=== PATIENT | female | born 1975 | race Caucasian/White ===

== ENCOUNTER 2024-07-23 11:30 | Outpatient (AMB) | payer OTHER, SELFPAY ==
--- NOTE | 2024-07-23 11:59 | AM.OFFWIN_ITS ---
Intake Vital Signs 07/23/24 12:00 Height 5 ft 3 in Weight 165 lb BMI 29.2 BP 130/80 Blood Pressure Location Lt brachial Position Sitting Pulse 56 Pulse Source Pulse Oximeter Pulse Oximetry (%) 98 Oxygen Delivery Method Room Air Intake Visit Reasons: EP Migraine Intake Note: Patient here for migraine that has been present since yesterday. Patient Tobacco Use Status: Never used Tobacco Allergies No Known Allergies Allergy (Verified 07/23/24 12:01) Do you need a note to return to daycare/school/sports/work: No HPI HPI Comments History of Present Illness Details History of Present Illness - The patient is a 49-year-old female pr esenting with a migraine headache with light sensitivity and nausea. - She reports onset of the current episo de the day prior at 5:00 PM, necessitating bed rest due to severity. - Sound sensitivity is present, particul nahid exacerbated by dog barking. - Patient has a history of treatment wit h Ubrelvy, which effectively manages her migraine attacks without needing additional dosing. - Previously used rizatriptan was effect tom but required additional dosing for adequate relief. - Past medication management includes di fficulties with obtaining prior authorization, affecting the availability of Ubrelvy and necessitating sample usage from her prior PCP who closed her doors unexpectedly a few months ago. - There has been recent [facility], impacting her medication prescriptions. Physical Exam General: Cooperative, healthy appearing, comfortable, no acute distress and well developed, wearing sunglasses Orientation: Patient oriented x3 Limitations: No limitations Head: Normal to inspection Ears: Hearing grossly normal bilaterally Nose: Normal External nose present Face and sinus: Normal facial exam Eyes: Appearance normal, both eyes and all related structures Neck: Normal visual inspection and Yes full ROM Respiratory: Normal respiratory effort and able to speak in complete sentences. Skin: No rashes or lesions noted Neuro: Patient oriented x3 Extremities: Normal to inspection PFSH Social History Patient Tobacco Use Status: Never used Tobacco Review of Systems Const All systems reviewed & are unremarkable except as noted in HPI and below Physical Exam Vital Signs: Last Vital Signs Pulse 56 07/23/24 12:00 BP 130/80 07/23/24 12:00 Pulse Ox 98 07/23/24 12:00 Oxygen Delivery Method Room Air 07/23/24 12:00 BMI result Body Mass Index 29.2 Assessment & Plan Assessment & Plan (1) Migraine: Code(s): G43.909 - Migraine, unspecified, not intractable, without status migrainosus Qualifiers: Migraine type: unspecified Status migrainosus presence: without status migrainosus Intractability: not intractable Qualified Code(s): G43.909 - Migraine, unspecified, not intractable, without status migrainosus Plan: The patient had used Ubrelvy (ubrogepant) 100 mg effectively without needing subsequent doses, contrasting with her need to redose rizatriptan within two hours for relief. However, due to the need for prior authorization with Ubrelvy, we had to send RX for rizatriptan 10 mg in tablet so patient can get her medication today. The patient's next steps include follow-up care with her new primary care provider, Julienne Petersen MD for continued chronic migraine management. No note for work absence was required at this time. Patient was informed and verbally consented to the use of an ambient scribe for clinic note documentation during this visit. Medications: New rizatriptan take 1 tab at onset of headache; if no relief may repeat 1 tab after at least 2 hrs; max = 3 tabs/24 hr PO 10 tabs 0RF Coding Level of Care Code Est Pt Level 3 (12844) Diagnoses Migraine without status migrainosus, not intractable, unspecified migraine type G43.909 Migraine type: unspecified Status migrainosus presence: without status migrainosus Intractability: not intractable
[2024-07-23 12:00] VITALS: BP 130/80; PULSE 56; O2SAT 98; BMI 29.2
== END 2024-07-23 12:24 | disposition home or self-care (01) ==
PROVIDERS: Visit Provider Physician Assistant
DX: G43.909 Migraine, unspecified, not intractable, without status migrainosus (principal)

== ENCOUNTER 2024-07-26 09:49 | Outpatient (AMB) | payer OTHER, SELFPAY ==
--- NOTE | 2024-07-26 09:53 | MHC.PC.OV ---
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 Transferring from [facility]. Don't have transfer records Was on hormone replacement therapy-progesterone and a patch through last pcp. Weight gain, bloating, night sweats. Gaining weight despite calorie restriction and frequent exercise regimen. Some improvement on the medications but stopped in April-she was just unsure about how she felt about taking the medications. She is still getting regular monthly periods. She had some spotting today and is just starting her monthly cycle. Migraine-She was well controlled on Ubrelvy 100mg. This effectively manages her migraine attacks without needing additional dosing. - She believes she has a remote history of trying BB & CCB for prophylaxis. Reports very frequent urination. Denies known elevation in glucose. Ongoing-denies dysuria. Believes normal urine volume with each urination. Drinks a lot of water throughout the day-trying to stay health. Seeking new head cleaning porter care. She is overdue for mammogram. [facility]. She has a family history of colon cancer. Intolerant of prior prep. Would like referral for colonoscopy with more traditional prep ROS see HPI PHYSICAL EXAM: GENERAL: Alert and oriented x 3. NAD EYES: EOMI. Anicteric. HENT: Moist mucous membranes. No scleral icterus. No cervical lymphadenopathy. LUNGS: Clear to auscultation bilaterally. CARDIOVASCULAR: Regular rate and rhythm. No murmur. No JVD. ABDOMEN: Soft, non-tender +bs EXTREMITIES: No edema. Non-tender. SKIN: No rashes or lesions. Warm. NEUROLOGIC: No focal neurological deficits. CN II-XII grossly intact PSYCHIATRIC: Cooperative. 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 1. Little interest or pleasure in doing things: not at all 2. Feeling down, depressed, or hopeless: not at all 3. Trouble falling or staying asleep, or sleeping too much: not at all 4. Feeling tired or having little energy: not at all 5. Poor appetite or overeating: not at all 6. Feeling bad about yourself - or that you are a failure or have let yourself or your family down: not at all 7. Trouble concentrating on things, such as reading the newspaper or watching television: not at all 8. Moving or speaking so slowly that other people could have noticed. Or the opposite - being so fidgety or restless that you have been moving around a lot more than usual: not at all 9. Thoughts that you would be better off or of hurting yourself in some way: not at all Total score: 0 Depression Screening Interpretation: Negative Depression Screening Done: Yes 84895 - PHQ-9 Billing: Yes Source: Developed by Drs. Dennys Govea, Blaire Estrada, Tyrone Goddard and colleagues, with an educational felix from [employer]. Thrive Questionnaire Date Thrive assessed: 07/26/24 I am a: Patient What is your living situation today?: I have a steady place to live Within the past 12 months, did the food you bought not last and you didn't have the money to get more?: Never true Within the past 12 months, did you worry whether your food would run out before you got money to buy more?: Never true Do you have trouble paying for medicines?: No Do you have trouble getting transportation to medical appointments?: No Do you have trouble paying your heating and electricity bill?: No Do you have trouble taking care of your child, family member or friend?: No Do you have trouble with day-to-day activities such as bathing, preparing meals, shopping, managing finances, etc.?: No Are you currently unemployed and looking for a job?: No Are you interested in more education?: No Please select the resources that you would like help with: None Currently or been in a relationship where the following occur: No concerns reported THRIVE Score: 0 AUDIT C Alcohol Use Questionnaire (AUDIT-C) 1. How often do you have a drink containing alcohol?: 2-4 times a month 2. How many drinks containing alcohol do you have on a typical day when you are drinking?: 1 or 2 3. How often do you have six or more drinks on one occasion?: Never Total Score: 2 DAVION-7 AMB Questionnaire DAVION-7 Date DAVION - 7 assessed: 07/26/24 Feeling nervous, anxious, or on edge: 0 = Not at all Not being able to stop or control worryin = Not at all Worrying too much about different things: 0 = Not at all Trouble relaxin = Not at all Being so restless that it is hard to sit still: 0 = Not at all Becoming easily annoyed or irritable: 0 = Not at all Feeling afraid as if something awful might happen: 0 = Not at all Total DAVION-7 score (0-4 normal; 5-9 mild; 10-14 moderate; 15-21 severe): 0 Source: Developed by Drs. Dennys Govea, Blaire Estrada, Tyrone Goddard and colleagues, with an educational felix from [employer]. DAVION-7 Assessment Billing DAVION-7 Assessment Tool: DAVION-7 Assessment 64336 Physical exam (Primary Care) Vital Signs: Last Vital Signs Pulse 55 07/26/24 09:58 Resp 12 07/26/24 09:58 BP 110/78 07/26/24 09:58 Pulse Ox 98 07/26/24 09:58 Oxygen Delivery Method Room Air 03/31/25 09:58 BMI result Body Mass Index 29.3 Tobacco/Smoking Status: Tobacco use Status Tobacco use date assessed 07/26/24 07/26/24 10:04 Patient Tobacco Use Status Never used Tobacco 07/26/24 10:09 e-Cigarette/Vaping Use Never Used 07/26/24 10:09 PHQ-9: PHQ-9 Score PHQ-9: Total score 0 07/26/24 10:09 Depression Screening Interpretation: Negative Thrive Assessment: Date of Thrive Assessment Date Thrive assessed 07/26/24 07/26/24 10:09 Currently or been in a relationship where the following occur: No concerns reported Coding Level of Care Code New Pt Level 4 (07401) Complex EM visit Add On G2211 Diagnoses Establishing care with new doctor, encounter for Z76.89 Perimenopause N95.1 Migraine without status migrainosus, not intractable, unspecified migraine type G43.909 Migraine type: unspecified Status migrainosus presence: without status migrainosus Intractability: not intractable Polyuria R35.89 Additional Codes DAVION-7 Assessment Billing - DAVION-7 Assessment Tool: DAVION-7 Assessment 46753 ([id number]) PHQ-9 - 64834 - PHQ-9 Billing: Yes ([id number]) Assessment & Plan Assessment & Plan (1) Establishing care with new doctor, encounter for: Code(s): Z76.89 - Persons encountering health services in other specified circumstances (2) Perimenopause: Code(s): N95.1 - Menopausal and female climacteric states Category: Medical (3) Migraine: Code(s): G43.909 - Migraine, unspecified, not intractable, without status migrainosus Category: Medical Qualifiers: Migraine type: unspecified Status migrainosus presence: without status migrainosus Intractability: not intractable Qualified Code(s): G43.909 - Migraine, unspecified, not intractable, without status migrainosus (4) Polyuria: Code(s): R35.89 - Other polyuria Category: Medical Plan 49 y/o to establish care Labs ordered Referral to head cleaning porter Mammogram ordered-slip provided to patient Ubrelvy ordered-PA needs to be completed. GI referral for colonoscopy, discuss prep Orders: Orders Comprehensive Met. Panel Today G43.909 - Migraine, unspecified, not intractable, without status migrainosus, N95.1 - Menopausal and female climacteric states, R14.0 - Abdominal distension (gaseous), R63.5 - Abnormal weight gain, Z13.228 - Encounter for screening for other metabolic disorders, Z78.9 - Other specified health status Complete Blood Count Auto Diff Today G43.909 - Migraine, unspecified, not intractable, without status migrainosus, N95.1 - Menopausal and female climacteric states, R14.0 - Abdominal distension (gaseous), R63.5 - Abnormal weight gain, Z13.228 - Encounter for screening for other metabolic disorders, Z78.9 - Other specified health status MM tomosynthesis screening BI Today Z12.31 - Encounter for screening mammogram for malignant neoplasm of breast Cortisol Random Today R63.5 - Abnormal weight gain Osmolality Urine Today R35.89 - Other polyuria UA and rflx microscopic Today R35.89 - Other polyuria Lutenizing Hormone Today G43.909 - Migraine, unspecified, not intractable, without status migrainosus, N95.1 - Menopausal and female climacteric states, R14.0 - Abdominal distension (gaseous), R63.5 - Abnormal weight gain, Z13.228 - Encounter for screening for other metabolic disorders, Z78.9 - Other specified health status Estradiol Ultra Sensitive Today G43.909 - Migraine, unspecified, not intractable, without status migrainosus, N95.1 - Menopausal and female climacteric states, R14.0 - Abdominal distension (gaseous), R63.5 - Abnormal weight gain, Z13.228 - Encounter for screening for other metabolic disorders, Z78.9 - Other specified health status TSH reflex Free T4 Today G43.909 - Migraine, unspecified, not intractable, without status migrainosus, N95.1 - Menopausal and female climacteric states, R14.0 - Abdominal distension (gaseous), R63.5 - Abnormal weight gain, Z13.228 - Encounter for screening for other metabolic disorders, Z78.9 - Other specified health status Lyme IgG/IgM w/reflex to WB Today G43.909 - Migraine, unspecified, not intractable, without status migrainosus, N95.1 - Menopausal and female climacteric states, R14.0 - Abdominal distension (gaseous), R63.5 - Abnormal weight gain, Z13.228 - Encounter for screening for other metabolic disorders, Z78.9 - Other specified health status Lipid Panel Today G43.909 - Migraine, unspecified, not intractable, without status migrainosus, N95.1 - Menopausal and female climacteric states, R14.0 - Abdominal distension (gaseous), R63.5 - Abnormal weight gain, Z13.228 - Encounter for screening for other metabolic disorders, Z78.9 - Other specified health status Vitamin B12 and Folate Today G43.909 - Migraine, unspecified, not intractable, without status migrainosus, N95.1 - Menopausal and female climacteric states, R14.0 - Abdominal distension (gaseous), R63.5 - Abnormal weight gain, Z13.228 - Encounter for screening for other metabolic disorders, Z78.9 - Other specified health status Hemoglobin A1c Today R35.89 - Other polyuria UA CC w/rflx Micro + Cult Today R35.89 - Other polyuria Referrals Gastroenterology Referral Z12.11 - Encounter for screening for malignant neoplasm of colon, Z80.0 - Family history of malignant neoplasm of digestive organs Medications: New Ubrelvy (ubrogepant) Max dose 200mg/24hours 100 mg PO ONCE 16 tabs 3RF NS G43.909 - Migraine, unspecified, not intractable, without status migrainosus Discontinued rizatriptan Discontinued Reason: Doctor's Order take 1 tab at onset of headache; if no relief may repeat 1 tab after at least 2 hrs; max = 3 tabs/24 hr PO 10 tabs 0RF
[2024-07-26 09:58] VITALS: BP 110/78; PULSE 55; RESP 12; O2SAT 98; BMI 29.3
== END 2024-07-26 10:38 | disposition home or self-care (01) ==
LOC: HO.HMCFM 09:50
PROVIDERS: Visit Provider Internal Medicine
DX: Z76.89 Persons encountering health services in other specified circumstances (principal); N95.1 Menopausal and female climacteric states; G43.909 Migraine, unspecified, not intractable, without status migrainosus; R35.89 Other polyuria

== ENCOUNTER → 2024-07-26 09:49 | Outpatient (BNVA) | payer OTHER, SELFPAY | PROVIDERS: Visit Provider Internal Medicine | DX: N95.1 Menopausal and female climacteric states (principal); G43.909 Migraine, unspecified, not intractable, without status migrainosus; R35.89 Other polyuria; R14.0 Abdominal distension (gaseous); R63.5 Abnormal weight gain; Z76.89 Persons encountering health services in other specified circumstances | CPT/HCPCS: 96127 ==

== ENCOUNTER 2024-07-26 10:56 | Outpatient (REF) | payer OTHER, SELFPAY ==
[2024-07-26 12:30] LABS: MANUAL DIFF FLAG NO
[2024-07-26 12:45] LABS: Basophils Absolute Auto 0.1 X10*3/uL (0.0-0.2); Eosinophils Percent Auto 0.6 % (0-4); Hematocrit 39.8 % (37.0-47.0); Hemoglobin 13.4 g/dl (12.0-16.0); Imm Gran Abs Auto 0.02 X10*3/uL (0.00-0.03); Imm Gran Pct Auto 0.3 % (0.0-0.4); Lymphocytes Percent Auto 29.3 % (20-40); Mean Corpuscular HGB Conc 33.7 g/dl (31.0-35.0); Mean Corpuscular Hemoglobin 32.4 pg (27.0-33.0); Mean Corpuscular Volume 96.4 fL (80.0-98.0); Monocytes Absolute Auto 0.7 X10*3/uL (0.1-1.2); Neutrophils Percent Auto 58.8 % (45-73); Platelet Count 275 X10*3/uL (160-400); Red Blood Count 4.13 X10*6/uL (4.20-5.50); Red Cell Distribution Width 12.4 % (11.0-16.0); White Blood Count 6.8 X10*3/uL (4.8-10.8)
[2024-07-26 13:07] LABS: Estimated Average Glucose 108 mg/dL; Hemoglobin A1c % 5.4 % (<6.0)
[2024-07-26 13:32] LABS: Alanine Aminotransferase 14 U/L (0-31); Albumin Level 4.7 g/dL (3.5-5.0); Alkaline Phosphatase 45 U/L (39-117); Anion Gap 12 (12-20); Aspartate Amino Transferase 23 U/L (5-31); Bilirubin Total 1.4 mg/dL (0.0-1.0); Blood Urea Nitrogen 15 mg/dL (9-16); Calcium 9.3 mg/dL (8.4-10.2); Carbon Dioxide 24 mmol/L (22-29); Chloride 107 mmol/L (96-108); Cholesterol 212 mg/dL (<200); Cortisol Random 6.5 ug/dL; Estimated Glomerular Filt Rate > 60; Glucose Random 84 mg/dL (60-115); HDL Cholesterol 59 mg/dL (>40); LDL Cholesterol Calculated 136 mg/dL (<100); Sodium 139 mmol/L (135-145); TSH reflex Free T4 1.33 uIU/mL (0.32-4.0); Total Protein 7.7 g/dL (6.5-8.0); Triglycerides 86 mg/dL (<150)
[2024-07-26 13:49] LABS: Folate 11.6 ng/mL (> or = 4.0); Vitamin B12 562 pg/mL (200-900)
[2024-07-26 15:12] LABS: Appearance Urine Clear; Color Urine Yellow; Glucose Urine UA Negative (Negative); Leukocyte Esterase Urine Negative (Negative); Nitrite Urine Negative (Negative); PH 5.5 (5.0-9.0); Specific Gravity - Urine <= 1.005 (1.005-1.025); Urine Blood Negative (Negative); Urine Ketones Negative (Negative); Urine Protein Negative (Neg-Trace)
[2024-07-26 16:34] LABS: Osmolality Urine 217 mosm/kg (373-1093)
[2024-07-27 07:52] LABS: Lutenizing Hormone 1.6 mIU/mL
[2024-07-27 20:38] LABS: Lyme Abs Screen <0.90 index
[2024-08-07 06:09] LABS: Estradiol Ultra Sensitive 64 pg/mL
== END 2024-07-26 10:57 | disposition home or self-care (01) ==
LOC: HO.WFDLDS 10:56
PROVIDERS: Visit Provider Internal Medicine
DX: N95.1 Menopausal and female climacteric states (principal); G43.909 Migraine, unspecified, not intractable, without status migrainosus; Z78.9 Other specified health status; R63.5 Abnormal weight gain; R14.0 Abdominal distension (gaseous); Z13.228 Encounter for screening for other metabolic disorders; R35.89 Other polyuria; Z13.1 Encounter for screening for diabetes mellitus
CPT/HCPCS: 36415; 80053; 80061; 81003; 82533; 82607; 82670; 82746; 83002; 83036; 83935; 84443; 85025; 86617; 86618

== ENCOUNTER 2024-08-05 08:21 | Outpatient (REF) | payer OTHER, SELFPAY ==
--- OUTSIDE RECORDS SUMMARY | 2024-08-05 08:32 | XMS_ITS | Patient Health Record ---
Author Organization [facility] [employer] [facility] Address [address] [place] [id number] Care Team Providers Care Data Processing Systems Project Planner Name Role Phone SABRA WOLFF Primary Care Provider [phone] ALLERGIES Allergen (clinical drug ingredient) Drug/Non Drug Allergy documented on EMR Reaction Allergy Type Onset Date Status Raspberry anaphylaxis Drug Allergy Activ e REASON FOR REFERRAL No Information MEDICATIONS Medication SIG (Take, Route, Frequency, Duration) Notes Start Date End Date Status Vitamin D3 125 MCG (5000 UT) 1 capsule Orally Once a day Active Azelaic Acid 20 % 1 application Instantizer Operator ally Once a day 10% Active Azelaic Acid 15 % 1 application Instantizer Operator ally Twice a day for 30 days 11/26/2022 Active Estradiol 0.05 MG/24HR 1 patch to skin Transdermal Two times a Week for 90 days Active Estradiol 0.075 MG/24HR 1 patch to skin Transdermal Two times a Week for 90 days Active Progesterone 100 MG 1 capsule at bedtime Oral Once a day for 90 days Active SOCIAL HISTORY Tobacco Use: Social History Observation Description Date Details (start date - stop date) Never Smoker NA - NA Sex Assigned At : Social History Observation Description Sex Assigned At Unknown Tobacco Use/Smoking Question Answer Notes Tobacco use: nonsmoker Section Notes: [place] with [place] with PROBLEMS Problem Type ICD Code Onset Dates Problem Status W/U Status Risk SNOMED Code Notes Problem Migraine without aura, intractable, with status migrainosus (G43.011) Active confirmed Refractory migraine without aura ([id number]) PLAN OF TREATMENT Pending Test Test Name Order Date Colonoscopy 11/26/2022 MAMMOGRAM, SCREENING 11/26/2022 Insurance Providers Payer Name Payer Address Payer Phone Subscriber Number Group Number Insured Name Patient Relationship to Insured Coverage Start Date Coverage End Date [employer] [address] [place] [address] [id number] PALMA SHORE Self - patient is the insured MEDICAL (GENERAL) HISTORY Medical History History ICD Code migraine headaches Rosacea Surgical History Surgery Date(Month/Year) tonsillectomy
== END 2024-08-05 08:22 | disposition home or self-care (01) ==
LOC: HO.MAMMO 08:21
PROVIDERS: PCP Internal Medicine; Visit Provider Internal Medicine
DX: Z12.31 Encounter for screening mammogram for malignant neoplasm of breast (principal)
CPT/HCPCS: 77063; 77067

== ENCOUNTER → 2024-08-05 08:30 | Outpatient (BNV) | payer OTHER, SELFPAY | PROVIDERS: PCP Internal Medicine; Visit Provider Internal Medicine | DX: Z12.31 Encounter for screening mammogram for malignant neoplasm of breast (principal) | CPT/HCPCS: 77063; 77067 ==

== ENCOUNTER 2024-12-24 14:24 | Outpatient (AMB) | payer OTHER, SELFPAY ==
--- NOTE | 2024-12-24 14:26 | A.OFFVIS_ITS ---
Vital Signs 12/24/24 14:28 Height 5 ft 3 in Weight 158 lb BMI 28.0 BP 126/72 Blood Pressure Location Rt brachial Position Sitting Pulse 78 Pulse Source Pulse Oximeter Pulse Oximetry (%) 99 Oxygen Delivery Method Room Air Intake Visit Reasons: Family Hx [place] [facility] Intake Note: New pt for initial colo screening. Reported FMHx. Hx of GI sx. CC: C.O. bloating intermittently (lj menopause). Pt denies any additional concerns or sx at this time. Pt has hx of severe adverse reaction to mag oxide prep. Digital Sales Assistant Required: No Accompanied by: Self / Same As Patient Allergies [id number] Antimigraine Agents Adverse Reaction (Intermediate, Verified 12/24/24 14:35) Chest Pain magnesium oxide Adverse Reaction (Unknown, Verified 12/24/24 14:35) Vomiting HPI HPI Family Hx [place] Cancer: Details: 49 year old ? female with no significant past medical history is here today for pre colonoscopy screening.? Patient was sent to us by her PCP.? This is her first colonoscopy screening.? Patient denies any gastrointestinal symptoms in the past or at present.? However patient does report increased abdominal bloating and weight gain. Denies any dyspepsia, dysphagia or odynophagia. Denies melena, hematochezia, unintentional weight loss or ribbon like stools Maternal grandfather was diagnosed with CRC. Patient's mother and her siblings were diagnosed with polyps.? Patient never had anesthesia in the past. Negative for history of sleep apnea.? Denies any history of cardiac, renal, pulmonary, or hepatic disease.?? No history of infectious? diseases like hepatitis A, B, C, HIV or tuberculosis.? 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 [employer] Current occupational exposures/hazards: No Cognitive needs: No Hearing needs: No Vision needs: Yes (reading glasses) Review of Systems Const Denies weight gain and Denies weight loss ENT Reports no additional complaints, Denies dysphagia and Denies odynophagia Card Reports no additional complaints Resp Reports no additional complaints GI Denies abdominal pain, Denies belching, Denies melena, Reports bloating, Denies change in bowel habits, Denies dysphagia, Denies excessive flatus, Denies dyspepsia, Denies heartburn, Denies diarrhea, Denies loose stools, Denies nausea, Denies odynophagia and Denies vomiting Reports no additional complaints Musc Reports no additional complaints Neuro Reports no additional complaints Psych Reports no additional complaints Endo Reports no additional complaints Physical Exam Vital Signs: Last Vital Signs Pulse 78 12/24/24 14:28 BP 126/72 12/24/24 14:28 Pulse Ox 99 12/24/24 14:28 Oxygen Delivery Method Room Air 12/24/24 14:28 BMI result Body Mass Index 28.0 Const General: healthy appearing, no acute distress and well developed Nutritional Appearance: well nourished Orientation/consciousness: patient oriented x3 Resp Effort & Inspection: normal respiratory effort, able to speak in complete sentences, no tracheal deviation and symmetric chest movement Auscultation: clear to auscultation bilaterally Cardio Rate: regular rate GI Inspection: Yes normal to inspection and No distended Palpation (GI): Soft to palpation, not firm, nontender and No hepatosplenomegaly present Auscultation: normal bowel sounds General: Yes no CVA tenderness Back/Spine/Pelvis Back: no CVA tenderness Skin General skin exam: elasticity normal, turgor normal and dry skin Neuro General: patient oriented x3 Psych Appearance: grossly normal Mental Status: mental status grossly normal Assessment & Plan Assessment & Plan (1) Screening for colon cancer: Code(s): Z12.11 - Encounter for screening for malignant neoplasm of colon Category: Medical Plan Patient denies any cardiac or respiratory symptoms.? Patient reports abdominal bloating. Low FODMAP diet discussed with patient. Denies any issues with anesthesia in the past.? Denies any history of sleep apnea.? No history infectious diseases in the past or present.? Not on any anticoagulation therapy.? Family history of CRC.? Patient denies melena, hematochezia, unintentional weight loss or ribbon like stools.? Discussed at length the pre-p rocedure,? prep, diet & medications as well as what to expect prior, during and after the procedure.?? Stressed the importance of good bowel prep.? Recommended the use of Vaseline or Calmoseptine OTC & baby wipes with bowel movements to promote comfort.? ?Patient verbalizes understanding and agrees to plan of care.? She was given the opportunity to ask questions and all questions answered.? We will see her after the procedure.? Medications: New bisacodyl (Dulcolax (bisacodyl)) take 4 tabs at noon the day before your colonoscopy 20 mg (4 x 5 mg) PO ONCE 4 tabs 0RF constipation 1 day Z12.11 - Encounter for screening for malignant neoplasm of colon polyethylene glycol 3350 (Miralax) As directed by gastroenterology department at [facility] 238 grams PO ONCE 238 grams 0RF Z12.11 - Encounter for screening for malignant neoplasm of colon Coding Level of Care Code New Pt Level 3 (92490) Diagnoses Screening for colon cancer Z12.11 Time Spent (min) 40 Comment 30 minutes spent with patient and additional 10 minutes spent reviewing her records
--- OUTSIDE RECORDS SUMMARY | 2024-12-24 14:27 | XMS_ITS | Clinical Summary ---
Author Organization [facility] Address [address] [place] [address] Phone Care Team Providers Care Fagot Maker Name Role Phone Maisha Curtis CAPSULE INSPECTOR Unavailable [phone] Pcp, Unknown Primary Care Provider Unavailabl e Allergies No known active allergies Medications norethindrone (SHAROBEL) 0.35 mg tablet Take 1 tablet by mouth daily. Active fluticasone propionate (FLONASE) 50 mcg/actuation nasal sprayIndication s:Allergic rhinitis SPRAY 1 SPRAY INTO EACH NOSTRIL EVERY DAY 16 mL 09/16/2018 Active SUMAtriptan (IMITREX) 25 MG tabletIndicatio ns:Migraine 1 tablet at onset of migraine, may repeat dose 2 hours later if needed Orally as directed 10 tablet 10/16/2018 Active Active Problems Problem Noted Date Diagnosed Date Chest pain 12/31/2017 Assessment & Plan (02/26/2018 12:58 PM EDT): Chest pain & jaw pain when she takes triptan. Known side effect but per UTD ETT is recommended to r/o underlying cardiac disease. She was encouraged to book ETT Assessment & Plan (12/31/2017 6:20 AM EDT): Experiences this as a side effect of triptan, but does not wish to d/c the triptan because it is very effective for migraine abortive tx. We did discuss alternatives today. As she wishes to continue using it the recommendation is to r/o underlying coronary disease. EKG today was normal. Stress test ordered Migraine 12/30/2017 Assessment & Plan (02/26/2018 12:59 PM EDT): Stable. Continue for just around only pill. Advised caution with triptan's given the chest and jaw pain she is having. She can use Excedrin until cleared by ETT Assessment & Plan (12/31/2017 6:22 AM EDT): Improved since stopping combined OCPs. About 4/ year now. Recommend using OTC migraine medication as needed. She wants to keep triptans as an option. She was advised not to take imitrex until we can confirm that she has no underlying coronary disease Immunizations Immunization Administration Dates Next Due Influenza Quadrivalent Preservative Free IM 04/2017 MMR 04/28/1998 Td (adult),2 Lf Tetanus Toxoid, PF, Adsorbed 04/1998 Tdap 02/26/2018 Family History Medical History Relation Comments Cataracts Father Diabetes mellitus Father Hypertension Father Kidney cancer Father Cancer Maternal Grandfather skin Hypertension Maternal Grandfather Stroke Maternal Grandfather CV disease Maternal Grandmother Cancer Maternal Grandmother lung Heart attack Maternal Grandmother Hyperlipidemia Maternal Grandmother Depression Mother Hyperlipidemia Mother Migraines Mother rare Psychiatric disorder Mother Aneurysm Paternal Grandfather aortic root CV disease Paternal Grandfather Marfan syndrome Paternal Grandfather Relation Status Comments Father Alive Maternal Grandfather Maternal Grandmother Mother Alive Paternal Grandfather Social History Tobacco Use Types Packs/Day Years Used Date Smoking Tobacco: Never Smokeless Tobacco: Never Alcohol Use Standard Drinks/Week Comments Yes 0 (1 standard drink = 0.6 oz pur e alcohol) Education Answer Date Recorded Are you interested in more education? Not on ronny e 08/23/2022 Are you concerned about learning? Not on file 08/23/2022 No 08/23/2022 No 08/23/2022 Digital Access Answer Date Recorded No 09/23/2022 No 09/23/2022 Reliable internet access at home? Not on file 09/23/2022 Device with a working camera? Not on file Comments Unknown Sex and Gender Information Value Date Recorded Sex Assigned at Not on file Legal Sex Female 10:30 PM EDT Gender Identity Not on file Sexual Orientation Not on file Last Filed Vital Signs Vital Sign Reading Time Taken Comments Blood Pressure 120/78 07/20/2018 10:02 AM EDT Pulse 61 07/20/2018 10:02 AM EDT Temperature 37.1 C (98.7 F) 07/20/2018 10:02 AM EDT Respiratory Rate - - Oxygen Saturation 99% 07/20/2018 10:02 AM EDT Inhaled Oxygen Concentration - - Weight 66.9 kg (147 lb 6.4 oz) 07/20/2018 10:02 AM EDT Height 161.3 cm (5' 3.5 ) 02/26/2018 10:48 AM ED T Body Mass Index 25.7 02/26/2018 10:48 AM EDT Plan of Treatment Health Maintenance Due Date Last Done Comments HEPATITIS C SCREENING 1995 HIV ONE-TIME SCREENING (18-6 5 YEARS) 1995 MAMMOGRAM 2017 PAP SMEAR 12/19/2017 02/21/2011 DEPRESSION SCREENING 02/26/2019 02/26/2018 COLOGUARD 2022 COLONOSCOPY 2022 COLORECTAL CANCER SCREENING 2022 FIT TEST 2022 FOBT 2022 SIGMOIDOSCOPY 2022 VIRTUAL COLONOSCOPY 2022 LIPID PANEL 02/26/2023 02/26/2018 COVID-19 VACCINE (2 - 2023-2 5 season) 2023 03/13/2022 Adult Td,Tdap Booster 02/27/2028 02/26/2018 , 04/28/1998 SMOKING STATUS SCREENING (On ce After 26 Yrs) Completed 07/20/2018 HEPATITIS A VACCINES Aged Out No long er eligible based on patient's age to complete this topic HIB VACCINES Aged Out No longer eligi ble based on patient's age to complete this topic MENINGOCOCCAL VACCINES (ACWY) Aged Out No longer eligible based on patient's age to complete this topic MENINGOCOCCAL VACCINES (B) Aged Out N o longer eligible based on patient's age to complete this topic PNEUMOCOCCAL VACCINES (0-49 years) Aged Out No longer eligible b ased on patient's age to complete this topic Medical Devices Not on file Procedures Procedure Name Priority Date/Time Associated Diagnosis Comments LIPID PANEL Routine 02/26/2018 11:21 AM EDT Screening, ischemic heart disease PAP SMEAR FOR RESULT ENTRY ONLY Routine 02/21/2011 from Last 3 Months or Most Recently Relevant to Health Maintenance Results * (ABNORMAL) Lipid panel (02/26/2018 11:21 AM EDT) HDL 80 mg/dL [facility] Comment: Interpretation <40 mg/dL: Low HDL cholesterol (major risk factor for CHD) Greater than or equal to 60 mg/dL: High HDL cholesterol ( negative risk factor for CHD) HDL - cholesterol is affected by a number of factors, e.g. smoking, excerise, hormones, sex and age. CHOLESTEROL 191 0 - 240 mg/dL [facility] TRIGLYCERIDES 54 30 - 160 mg/dL [facility] LDL 100 50 - 129 mg/dL [facility] Comment: LDL levels in terms of risk for coronary heart disease: <100 mg/dL: Optimal 100-129 mg/dL: Near or above optimal 130-159 mg/dL: Borderline high 160-189 mg/dL: High >190 mg/dL: Very High CARDIAC RISK RATIO 2.4(L) 3.3 - 4.4 C [facility] Blood 02/26/2018 11:2 1 AM EDT 02/26/2018 11:24 AM EDT Maisha Curtis [facility] BLOOD ORDERABLES Final Result Performing Organization Address City/State/[facility] Co de Phone Number [address] [address] * HM PAP SMEAR FOR RESULT ENTRY ONLY (02/21/2011) Pap smear 7 yr us Historical Provider MD HEALTH MAINTENANCE Final Result from Last 3 Months or Most Recently Relevant to Health Maintenance Insurance [facility] PPO [facility] PPO Care Teams Fagot Maker Relationship Specialty Start Date End Date Pcp, Unknown PCP - General 11/02/21 Maisha Curtis, ISAIAH [address] [facility], [address] [place] [id number] jo Historical LMR Provider 02/15/17 Additional Source Comments The information contained in this document represents components of the legal health record. It is not the complete legal health record.[facility]
[2024-12-24 14:28] VITALS: BP 126/72; PULSE 78; O2SAT 99; BMI 28.0
== END 2024-12-24 15:16 | disposition home or self-care (01) ==
LOC: HO.HGI 14:24
PROVIDERS: PCP Internal Medicine; Visit Provider Nurse Practitioner Family
DX: Z01.818 Encounter for other preprocedural examination (principal); Z12.11 Encounter for screening for malignant neoplasm of colon; Z80.0 Family history of malignant neoplasm of digestive organs
CPT/HCPCS: S0285

== ENCOUNTER 2025-02-01 07:33 | Day surgery (SDC) | payer OTHER, SELFPAY ==
--- OUTSIDE RECORDS SUMMARY | 2025-01-17 12:37 | XMS_ITS | Clinical Summary ---
Author Organization [facility] Address [address] [place] [address] Phone Care Team Providers Care Electronic Service Technician Name Role Phone Maisha Curtis FARMWORKER VEGETABLE Unavailable [phone] Pcp, Unknown Primary Care Provider Unavailabl e [...] VIRTUAL COLONOSCOPY 2022 LIPID PANEL 02/26/2023 02/26/2018 INFLUENZA VACCINE (#1) 2024 2, 02/26/2018 COVID-19 VACCINE (2 - 2024-2 6 season) 2024 03/13/2022 Adult Td,Tdap Booster 02/27/2028 02/26/2018 , [...] (02/26/2018 11:21 AM EDT) HDL 80 mg/dL [facility] Comment: Interpretation <40 mg/dL: Low HDL cholesterol (major risk factor for CHD) Greater than or equal to 60 mg/dL: High HDL cholesterol ( negative risk factor for CHD) HDL - cholesterol is affected by a number of factors, e.g. smoking, excerise, hormones, sex and age. CHOLESTEROL 191 0 - 240 mg/dL [facility] TRIGLYCERIDES 54 30 - 160 mg/dL [facility] LDL 100 50 - 129 mg/dL [facility] Comment: LDL levels in terms of risk for coronary heart disease: <100 mg/dL: Optimal 100-129 mg/dL: Near or above optimal 130-159 mg/dL: Borderline high 160-189 mg/dL: High >190 mg/dL: Very High CARDIAC RISK RATIO 2.4(L) 3.3 - 4.4 C [facility] Blood 02/26/2018 11:2 1 AM EDT 02/26/2018 11:24 AM EDT us Maisha Curtis [facility] BLOOD ORDERABLES Final Result [facility] [address] [place] [address] * HM PAP SMEAR FOR RESULT ENTRY ONLY (02/21/2011) HM Pap smear 5 yr us Historical Provider MD HEALTH MAINTENANCE Final Result from Last 3 Months or Most Recently Relevant to Health Maintenance Insurance [facility] PPO [facility] PPO [facility] PPO [facility] PPO [facility] PPO Care Teams Electronic Service Technician Relationship Specialty Start Date End Date Pcp, Unknown PCP - General 11/02/21 Maisha Curtis, ISAIAH [address] [facility], [address] [place] [address] jo Historical LMR Provider 02/15/17 Additional Source Comments The information contained in this document represents components of the legal health record. It is not the complete legal health record.[facility]
[2025-01-28 14:33] VITALS: BMI 28.0
--- NOTE | 2025-01-31 09:16 | P.CONAN_ITS ---
Documented by User: Jannet Wagner NP 01/31/25 09:16 HPI - Anesthesia Eval Consult details Narrative: 49 yr old female for colonoscopy [facility] Active Problems Active Problems: All Active Problems Polyuria (Acute) Screening for colon cancer (Acute) Family history of colon cancer (Acute) Screening for metabolic disorder (Acute) Bloating (Acute) Weight gain (Acute) Medication intolerance (Acute) Perimenopause (Acute) Migraine (Acute) Family History Family History Paternal Uncle Alcoholism Mother Depression Paternal Aunt Depression Family/Other Depression Maternal Grandfather Colon cancer Other FH: mental illness Substance abuse Social History Social History Housing: House Alcohol intake: current Patient Tobacco Use Status: Never used Tobacco e-Cigarette/Vaping Use: Never Used Second Hand Smoke Exposure: No Use of substances other than those prescribed or required for medical reasons: No Advance Directives: No Advance Directives Information Provided: Yes service: No Current occupational status: employed 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[employer] Current occupational exposures/hazards: No Cognitive needs: No Hearing needs: No Vision needs: Yes (reading glasses) Meds Allergies Allergy/AdvReac Type Severity Reaction Status Date / Time [id number] Antimigraine AdvReac Intermediate Chest Pain Verified 12/24/24 14:35 Agents magnesium oxide AdvReac Unknown Vomiting Verified 12/24/24 14:35 Exam Height,Weight and Vital Signs: Height 5 ft 3 in Weight 71.668 kg Documented by User: Dc Uriostegui MD 02/01/25 09:02 [facility] Past Medical History Patient : No Family History Family History Paternal Uncle Alcoholism Mother Depression Paternal Aunt Depression Family/Other Depression Maternal Grandfather Colon cancer Other FH: mental illness Substance abuse Family history of problems with anesthesia: No Surgical History History of Problems with Anesthesia: No Social History Social History Housing: House Alcohol intake: current Patient Tobacco Use Status: Never used Tobacco e-Cigarette/Vaping Use: Never Used Second Hand Smoke Exposure: No Use of substances other than those prescribed or required for medical reasons: No Advance Directives: No Advance Directives Information Provided: Yes service: No Current occupational status: employed 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[employer] Current occupational exposures/hazards: No Cognitive needs: No Hearing needs: No Vision needs: Yes (reading glasses) Meds Allergies Allergy/AdvReac Type Severity Reaction Status Date / Time [id number] Antimigraine AdvReac Intermediate Chest Pain Verified 12/24/24 14:35 Agents magnesium oxide AdvReac Unknown Vomiting Verified 12/24/24 14:35 Exam Exam Date and Time: 02/01/2025 Airway TM Dist: >3cm Neck ROM: Full Heart: normal Lungs: clear Other: normal Assessment and Plan Final Anesthetic Review Family History of Problems with Anesthesia: No History of Problems with Anesthesia: No NPO: Yes ASA Class: II Final Preanesthetic Review: No Changes in Pt Med Stat, Meds/Allgs Chart Reviewed, Consent Obtained/Reviewed and Anes Risks/Benef Reviewed Patient Risk: Low Procedure Risk: Low Anesthetic Plan Anesthetic Plan: MAC: Disposition: Standard PACU
--- NOTE | 2025-02-01 08:03 | MHC.SHP ---
Pre-Procedural Eval Section A - 24 Hr Update-Section A only Date of Service: 02/01/25 Section B - Complete if H&P > 30 days Chief Complaint: screening Details of Present Illness: Paternal Uncle Alcoholism Mother Depression Paternal Aunt Depression Family/Other Depression Maternal Grandfather Colon cancer Other FH: mental illness Substance abuse Present Medications: see Short Stay Collaborative assessment Allergies: Allergies Allergy/AdvReac Type Severity Reaction Status Date / Time [id number] Antimigraine AdvReac Intermediate Chest Pain Verified 12/24/24 14:35 Agents magnesium oxide AdvReac Unknown Vomiting Verified 12/24/24 14:35 Review of Systems Review of Systems Comment: Ten point ROS negative Exam Exam Comment: Gen appear: No acute distress HEENT: no icterus Chest: No overt resp distress Abd: soft, nontender, nondistended Psych: Stable affect, answering questions appropriately Neuro: A/Ox3 noted to move all extremities spontaneously Ext: no peripheral edema Plan Diagnosis/Plan: Unchanged I have reviewed the history and physical and performed a pertinent physical examination on my patient. No changes have occurred unless specified. Time Spent With Patient Time: Total time managing care of this patient today ____ minutes.
[2025-02-01 08:21] LABS: UPreg QC Valid YES
[2025-02-01] MEDS: Lactated Ringers 1,000 ML 100 ML IVCONT (08:26)
[2025-02-01 08:27] VITALS: BP 122/89; PULSE 67; RESP 16; TEMP 36.4; O2SAT 99
--- NOTE | 2025-02-01 09:18 | HO.OPN-COLON ---
Colonoscopy Operative Note Operative Note Date of Service: 02/01/25 Narrative: Procedure: Colonoscopy Indication: Family hx of polyps Endoscopist: Zaria Barraza MD Anesthesia Provider: Dr Uriostegui Anesthesia type: MAC Instrument: Olympus [id number]-H190L Consent: Indication, risks vs benefits, and alternatives were discussed with the patient who gave written informed consent to proceed. An aerial photograph interpreter was utilized to assist with the consent. Monitoring: EKG, pulse, pulse oximetry and blood pressure were monitored throughout the procedure. Please see anesthesia flowsheet. Procedure: The patient was brought to the procedure room and placed in the left lateral decubitus position. IV medications were administered by the anesthesia provider in attendance. A digital rectal exam was performed which was normal. A distal attachment cap was affixed to the tip of the colonoscope which was then inserted through the anus and advanced through the colon to the cecum at 75 cm,and terminal ileum. Appendiceal orifice and ileocecal valve were identified. Mucosa was carefully examined under high definition white light as the instrument was slowly withdrawn in a retrograde panoramic fashion. Retroflexion was performed in ascending colon and rectum. The procedure was not difficult. There were no immediate obvious complications. The quality of the prep was BBPS: 2+3+3 = adequate Withdrawal time 20 minutes. Limitations: No limitations. Findings: Mucosa: Normal to cecum and terminal ileum. Protruding lesions: 2 sessile polyps of size 2-3 mm in cecum. Cold snare polypectomy was performed. The polyp was completely removed and retrieved. 1 pedunculated polyp of size 20 mm in rectum at 20 cm. 1 cc of epinephrine injected in the stalk of the polyp. Hot snare polypectomy was performed. The polyp was completely removed and retrieved. A resolution 360 clip was placed at the polypectomy defect. 1 semi-pedunculated polyp of size 7 mm in rectum. Hot snare polypectomy was performed. The polyp was completely removed and retrieved. Medium internal hemorrhoids without stigmata of recent bleeding. Impression: 1. Normal colon and terminal ileum mucosa 2. Total of 4 polyps removed (cold snare, hot snare, epi, endoclip) 3. Internal hemorrhoids Recommendations: - Follow path results. - Repeat colonoscopy in 1-3 years depending on results
[2025-02-01 09:52] VITALS: BP 98/57; PULSE 74; RESP 16; TEMP 36.2; O2SAT 100
[2025-02-01 10:00] VITALS: BP 103/69; PULSE 74; RESP 16; TEMP 36.2; O2SAT 100
[2025-02-01 10:15] VITALS: BP 108/60; PULSE 69; RESP 16; TEMP 36.2; O2SAT 100
== END 2025-02-01 10:51 | disposition home or self-care (01) ==
PROVIDERS: Nurse Practitioner; PCP Internal Medicine; Visit Provider Internal Medicine
PROC: 0DJD8ZZ Inspection of Lower Intestinal Tract, Via Natural or Artificial Opening Endoscopic (ICD-10-PCS; CPT 45378; principal; 2025-02-01 09:10)
DX: Z12.11 Encounter for screening for malignant neoplasm of colon (principal); Z80.0 Family history of malignant neoplasm of digestive organs; K52.89 Other specified noninfective gastroenteritis and colitis; D12.0 Benign neoplasm of cecum; D12.6 Benign neoplasm of colon, unspecified; K62.1 Rectal polyp; K64.8 Other hemorrhoids
CPT/HCPCS: 45385; 45384; 45381; 81025; 88305; J0165; J0168; J2003; J2704; J3010

== ENCOUNTER → 2025-02-01 07:33 | Outpatient (BNV) | payer OTHER, SELFPAY | PROVIDERS: PCP Internal Medicine; Visit Provider Internal Medicine | DX: Z12.11 Encounter for screening for malignant neoplasm of colon (principal); D12.0 Benign neoplasm of cecum; D12.8 Benign neoplasm of rectum; K64.8 Other hemorrhoids; Z83.719 Family history of colon polyps, unspecified | CPT/HCPCS: 45381; 45385 ==